=== PATIENT | male | born 1965 | race Two or more races ===

== ENCOUNTER 2019-07-30 10:18 | Outpatient (CLI) | payer OTHER ==
--- NOTE | 2019-07-31 09:56 | Diagnostic Imaging Report ---
INDICATION: Leg pain and swelling TECHNIQUE: Grayscale and duplex Doppler imaging of the arteries in both lower extremities performed in real time from the common femoral artery to trifurcation arteries. Arterial waveform analysis and velocities measured. No ABIs were obtained. COMPARISON: None FINDINGS: Velocities at peak systole and diastole are normal throughout both lower extremity arteries. Minimal scattered mural plaques some with calcification are noted consistent with atherosclerotic disease. Triphasic to biphasic waveforms noted throughout. Right lower extremity: Aortoiliac disease: No evidence of stenosis or occlusion. Femoral-popliteal disease: No evidence of stenosis or occlusion. Tibial disease: No evidence of stenosis or occlusion. Left lower extremity: Aortoiliac disease: No evidence of stenosis or occlusion. Femoral-popliteal disease: No evidence of stenosis or occlusion. Tibial disease: No evidence of stenosis or occlusion. IMPRESSION: Peripheral lower extremity arterial examination showing no evidence of significant stenosis or occlusion. Mild atherosclerotic vascular disease.
== END 2019-07-30 12:18 | disposition home or self-care (01) ==
LOC: VAS 10:18
DX: M79.605 Pain in left leg (principal); M79.604 Pain in right leg; R22.43 Localized swelling, mass and lump, lower limb, bilateral
CPT/HCPCS: 93925; 93970